=== PATIENT | male | born 1960 | race Caucasian/White ===

== ENCOUNTER 2017-11-21 13:32 | Emergency (ER) | payer MEDICAID ==
[2017-11-21 16:20] LABS: ADD MAN DIFF? NO
[2017-11-21 16:24] LABS: AADO2 Arterial 31.5 mmHg (7.0-24.0); ADD UMIC YES; Allen Test ACCEPTAB; Arterial Base Excess -3.1 mmol/L (-3.0-3); Arterial HCO3 22.1 mmol/L (22.0-26.0); Arterial MetHb 0.2 % (0.0-1.5); Arterial Total Hemglobin 17.2 g/dl (12.0-18.0); Arterial pCO2 40.4 mmhg (35-45); BASOPHIL # 0.1 10^3/ul (0.0-0.1); BASOPHILS % 0.6 % (0.0-2.0); EOSINOPHILS # 0.1 10^3/ul (0.0-0.5); EOSINOPHILS % 0.6 % (0.0-7.0); HEMATOCRIT 47.3 % (42.0-52.0); LYMPHOCYTES # 2.1 10^3/ul (0.8-2.9); LYMPHOCYTES % 25.2 % (15.0-51.0); MEAN CORPUSCULAR HEMOGLOBIN 29.5 pg (29.0-33.0); MEAN CORPUSCULAR HGB CONC 33.8 g/dl (32.0-37.0); MEAN CORPUSCULAR VOLUME 87.3 fl (82.0-101.0); MEAN PLATELET VOLUME 12.1 fl (7.4-10.4); MODE ROOM AIR; MONOCYTE # 0.6 10^3/ul (0.3-0.9); MONOCYTES % 6.9 % (0.0-11.0); NEUTROPHIL # 5.5 10^3/ul (1.6-7.5); NEUTROPHILS % 66.5 % (39.0-77.0); PLATELET COUNT 283 10^3/UL (140-415); RED BLOOD COUNT 5.42 10^6/ul (4.70-6.10); RED CELL DISTRIBUTION WIDTH 12.8 % (11.5-14.5); Site Right Radial; UR ASCORBIC ACID NEGATIVE (NEGATIVE); UR BILIRUBIN (Dip) NEGATIVE (NEGATIVE); UR BLOOD (Dip) 1+ mg/dL (NEGATIVE); UR CLARITY CLEAR (CLEAR); UR COLOR STRAW (YELLOW); UR GLUCOSE (Dip) 3+ mg/dL (NEGATIVE); UR KETONES (Dip) NEGATIVE (NEGATIVE); UR LEUKOCYTE ESTERASE (Dip) NEGATIVE Leu/ul (NEGATIVE); UR NITRITE (Dip) NEGATIVE (NEGATIVE); UR RBC 0 /HPF (0-5); UR SPECIFIC GRAVITY (Dip) 1.022 (1.003-1.030); UR TOTAL PROTEIN (Dip) 1+ mg/dl (NEGATIVE); UR UROBILINOGEN (Dip) NEGATIVE (NEGATIVE); UR WBC 1 /HPF (0-5)
[2017-11-21 16:24] LABS: WHITE BLOOD COUNT 8.2 10^3/ul (4.8-10.8)
[2017-11-21 16:38] LABS: INR 0.96; PROTIME 12.9 Sec (11.9-14.9)
[2017-11-21 16:39] LABS: PARTIAL THROMBOPLASTIN TIME 29.5 Sec (25.0-35.0)
[2017-11-21 16:56] LABS: ALANINE AMINOTRANSFERASE 92 IU/L (13-69); ALBUMIN 3.9 g/dl (3.3-4.9); ALBUMIN/GLOBULIN RATIO 1.11; ALKALINE PHOSPHATASE 221 IU/L (42-121); ANION GAP 17 (8-16); ASPARTATE AMINO TRANSFERASE 120 IU/L (15-46); BILIRUBIN,INDIRECT 0.1 mg/dl (0-1.1); BILIRUBIN,TOTAL 0.1 mg/dl (0.2-1.3); BLOOD UREA NITROGEN 27 mg/dl (7-20); CALCIUM 9.4 mg/dl (8.4-10.2); CARBON DIOXIDE 20 mmol/L (21-31); CHLORIDE 96 mmol/L (97-110); CREATININE 1.75 mg/dl (0.61-1.24); MAGNESIUM 2.1 mg/dl (1.7-2.5); PHOSPHORUS 3.7 mg/dl (2.5-4.9); POTASSIUM 5.2 mmol/L (3.5-5.1); SODIUM 128 mmol/L (135-144); TOTAL PROTEIN 7.4 g/dl (6.1-8.1)
[2017-11-21] MEDS: SOD CHLORIDE 0.9% IV (16:56)
[2017-11-21 17:08] LABS: TROPONIN-I < 0.012 ng/ml (0.00-0.12)
[2017-11-21 17:21] LABS: GLUCOSE 827 mg/dl (70-220)
[2017-11-21] MEDS: INSULIN LISPRO 100 UNIT/ML VIAL SC (19:19)
[2017-11-21] MEDS: hydrALAzine 20 MG INJ IV (20:33)
[2017-11-21] MEDS: NIFEdipine (XL) 30 MG TAB PO (20:34)
== END 2017-11-21 22:38 | disposition home or self-care (01) ==
LOC: E/R 13:32
DX: E11.65 Type 2 diabetes mellitus with hyperglycemia (principal); N17.9 Acute kidney failure, unspecified; R94.5 Abnormal results of liver function studies; R42 Dizziness and giddiness; Z79.84 Long term (current) use of oral hypoglycemic drugs
CPT/HCPCS: 36600; 70450; 71045; 80053; 81001; 82803; 82962; 83605; 83735; 84100; 84484; 85025; 85610; 85730; 87040; 87086; 93005; 96372; 96374; 99285-25

== ENCOUNTER 2017-11-29 16:10 | Emergency (ER) | payer MEDICAID ==
[2017-11-29] MEDS: NICARDipine HCL 30 MG CAPSULE PO (17:47)
[2017-11-29 18:34] LABS: ADD MAN DIFF? NO
[2017-11-29 18:36] LABS: BASOPHIL # 0.1 10^3/ul (0.0-0.1); BASOPHILS % 0.8 % (0.0-2.0); EOSINOPHILS % 0.1 % (0.0-7.0); HEMATOCRIT 45.8 % (42.0-52.0); HEMOGLOBIN 16.1 g/dl (14.0-18.0); LYMPHOCYTES # 2.1 10^3/ul (0.8-2.9); LYMPHOCYTES % 27.9 % (15.0-51.0); MEAN CORPUSCULAR HEMOGLOBIN 30.4 pg (29.0-33.0); MEAN CORPUSCULAR HGB CONC 35.2 g/dl (32.0-37.0); MEAN CORPUSCULAR VOLUME 86.6 fl (82.0-101.0); MEAN PLATELET VOLUME 12.1 fl (7.4-10.4); MONOCYTE # 0.7 10^3/ul (0.3-0.9); MONOCYTES % 8.8 % (0.0-11.0); NEUTROPHIL # 4.7 10^3/ul (1.6-7.5); NEUTROPHILS % 62.1 % (39.0-77.0); PLATELET COUNT 276 10^3/UL (140-415); RED BLOOD COUNT 5.29 10^6/ul (4.70-6.10)
[2017-11-29 18:36] LABS: WHITE BLOOD COUNT 7.5 10^3/ul (4.8-10.8)
[2017-11-29 18:55] LABS: ANION GAP 19 (8-16); BLOOD UREA NITROGEN 33 mg/dl (7-20); CALCIUM 9.4 mg/dl (8.4-10.2); CARBON DIOXIDE 22 mmol/L (21-31); CHLORIDE 93 mmol/L (97-110); CREATININE 1.67 mg/dl (0.61-1.24); POTASSIUM 4.8 mmol/L (3.5-5.1); SODIUM 129 mmol/L (135-144)
[2017-11-29 19:06] LABS: TROPONIN-I 0.018 ng/ml (0.00-0.12)
[2017-11-29 19:08] LABS: GLUCOSE 752 mg/dl (70-220)
[2017-11-29] MEDS: INSULIN LISPRO 100 UNIT/ML VIAL SC (19:40)
[2017-11-29] MEDS: SOD CHLORIDE 0.9% 1,000 ML IV (19:40)
== END 2017-11-29 20:58 | disposition home or self-care (01) ==
LOC: E/R 16:10
DX: I10 Essential (primary) hypertension (principal); I16.0 Hypertensive urgency; E11.65 Type 2 diabetes mellitus with hyperglycemia; Z87.891 Personal history of nicotine dependence; Z79.84 Long term (current) use of oral hypoglycemic drugs
CPT/HCPCS: 36415; 80048; 82962; 84484; 85025; 93005; 96372; 99284-25

== ENCOUNTER 2017-12-04 12:39 | Emergency (ER) | payer MEDICAID ==
[2017-12-04] MEDS: SOD CHLORIDE 0.9% 2,110 ML IV (14:18)
[2017-12-04 14:21] LABS: AADO2 Arterial 39.3 mmHg (7.0-24.0); Allen Test ACCEPTAB; Arterial Base Excess -9.8 mmol/L (-3.0-3); Arterial Blood Gas Oxygen Sat 94.6 mmHG (95.0-98.0); Arterial COHb 0.7 % (0.0-3.0); Arterial Fraction of Oxyhgb 93.7 % (93.0-99.0); Arterial HCO3 14.5 mmol/L (22.0-26.0); Arterial MetHb 0.3 % (0.0-1.5); Arterial Total Hemglobin 17.6 g/dl (12.0-18.0); Arterial pCO2 28.8 mmhg (35-45); MODE ROOM AIR; Site Left Radial
[2017-12-04 14:23] LABS: ADD MAN DIFF? NO
[2017-12-04 14:25] LABS: BASOPHILS % 0.4 % (0.0-2.0); HEMATOCRIT 53.1 % (42.0-52.0); HEMOGLOBIN 18.2 g/dl (14.0-18.0); LYMPHOCYTES # 1.9 10^3/ul (0.8-2.9); LYMPHOCYTES % 21.1 % (15.0-51.0); MEAN CORPUSCULAR HEMOGLOBIN 29.4 pg (29.0-33.0); MEAN CORPUSCULAR HGB CONC 34.3 g/dl (32.0-37.0); MEAN CORPUSCULAR VOLUME 85.8 fl (82.0-101.0); MEAN PLATELET VOLUME 11.6 fl (7.4-10.4); MONOCYTE # 0.5 10^3/ul (0.3-0.9); MONOCYTES % 5.2 % (0.0-11.0); NEUTROPHIL # 6.6 10^3/ul (1.6-7.5); PLATELET COUNT 319 10^3/UL (140-415); RED BLOOD COUNT 6.19 10^6/ul (4.70-6.10)
[2017-12-04 14:30] LABS: ADD UMIC YES; UR ASCORBIC ACID NEGATIVE (NEGATIVE); UR BACTERIA FEW /HPF (NONE SEEN); UR BILIRUBIN (Dip) NEGATIVE (NEGATIVE); UR BLOOD (Dip) 1+ mg/dL (NEGATIVE); UR CLARITY CLEAR (CLEAR); UR COLOR STRAW (YELLOW); UR GLUCOSE (Dip) 3+ mg/dL (NEGATIVE); UR KETONES (Dip) 1+ mg/dL (NEGATIVE); UR LEUKOCYTE ESTERASE (Dip) NEGATIVE Leu/ul (NEGATIVE); UR NITRITE (Dip) NEGATIVE (NEGATIVE); UR RBC 1 /HPF (0-5); UR SPECIFIC GRAVITY (Dip) 1.021 (1.003-1.030); UR TOTAL PROTEIN (Dip) 2+ mg/dl (NEGATIVE); UR UROBILINOGEN (Dip) NEGATIVE (NEGATIVE); UR WBC 1 /HPF (0-5)
[2017-12-04 14:39] LABS: INR 0.96; PROTIME 12.9 Sec (11.9-14.9)
[2017-12-04 14:40] LABS: PARTIAL THROMBOPLASTIN TIME 28.1 Sec (25.0-35.0)
[2017-12-04 14:51] LABS: ALANINE AMINOTRANSFERASE 104 IU/L (13-69); ALBUMIN 4.5 g/dl (3.3-4.9); ALBUMIN/GLOBULIN RATIO 1.25; ALKALINE PHOSPHATASE 191 IU/L (42-121); ANION GAP 25 (8-16); ASPARTATE AMINO TRANSFERASE 76 IU/L (15-46); BILIRUBIN,INDIRECT 0.1 mg/dl (0-1.1); BILIRUBIN,TOTAL 0.1 mg/dl (0.2-1.3); BLOOD UREA NITROGEN 30 mg/dl (7-20); CALCIUM 9.7 mg/dl (8.4-10.2); CARBON DIOXIDE 17 mmol/L (21-31); CHLORIDE 100 mmol/L (97-110); CREATININE 1.82 mg/dl (0.61-1.24); MAGNESIUM 2.3 mg/dl (1.7-2.5); PHOSPHORUS 4.4 mg/dl (2.5-4.9); SODIUM 137 mmol/L (135-144); TOTAL PROTEIN 8.1 g/dl (6.1-8.1)
[2017-12-04 15:33] LABS: GLUCOSE 614 mg/dl (70-220)
[2017-12-04 15:34] LABS: LACTIC ACID 2.1 mmol/L (0.5-2.0)
[2017-12-04 16:34] LABS: TROPONIN-I 0.017 ng/ml (0.00-0.12)
[2017-12-04] MEDS: INSULIN LISPRO 100 UNIT/ML VIAL SC (16:38)
[2017-12-04 17:44] LABS: LACTIC ACID 1.3 mmol/L (0.5-2.0)
[2017-12-04] MEDS: LABETALOL HCL 20MG INJ IV (17:56)
[2017-12-04] MEDS: ONDANSETRON (ODT) 4 MG TAB ODT (20:28)
== END 2017-12-04 20:29 | disposition home or self-care (01) ==
LOC: E/R 12:39
DX: E11.65 Type 2 diabetes mellitus with hyperglycemia (principal); F17.210 Nicotine dependence, cigarettes, uncomplicated; N18.9 Chronic kidney disease, unspecified; I12.9 Hypertensive chronic kidney disease with stage 1 through stage 4 chronic kidney disease, or unspecified chronic kidney disease; Z79.84 Long term (current) use of oral hypoglycemic drugs
CPT/HCPCS: 36415; 36600; 71045; 80053; 81001; 82803; 82962; 83605; 83735; 84100; 84484; 85025; 85610; 85730; 87040; 87086; 93005; 96372; 96374; 99285-25

== ENCOUNTER 2019-06-27 08:02 | Inpatient (IN) | payer OTHER, MEDICAID ==
[2019-06-27 08:48] LABS: ADD MAN DIFF? NO
[2019-06-27 08:50] LABS: BASOPHILS % 0.2 % (0.0-2.0); EOSINOPHILS % 0.1 % (0.0-7.0); HEMATOCRIT 48.2 % (42.0-52.0); HEMOGLOBIN 16.3 g/dl (14.0-18.0); LYMPHOCYTES # 2.3 10^3/ul (0.8-2.9); LYMPHOCYTES % 17.5 % (15.0-51.0); MEAN CORPUSCULAR HEMOGLOBIN 30.1 pg (29.0-33.0); MEAN CORPUSCULAR HGB CONC 33.8 g/dl (32.0-37.0); MEAN CORPUSCULAR VOLUME 89.1 fl (82.0-101.0); MONOCYTE # 1.1 10^3/ul (0.3-0.9); MONOCYTES % 8.1 % (0.0-11.0); NEUTROPHIL # 9.5 10^3/ul (1.6-7.5); NEUTROPHILS % 73.7 % (39.0-77.0); PLATELET COUNT 328 10^3/UL (140-415); RED BLOOD COUNT 5.41 10^6/ul (4.70-6.10); RED CELL DISTRIBUTION WIDTH 13.8 % (11.5-14.5)
[2019-06-27 08:50] LABS: WHITE BLOOD COUNT 12.9 10^3/ul (4.8-10.8)
[2019-06-27 09:04] LABS: POTASSIUM 3.6 mmol/L (3.5-5.1)
[2019-06-27 09:05] LABS: ANION GAP 9 (5-13); BLOOD UREA NITROGEN 22 mg/dl (7-20); CALCIUM 9.1 mg/dl (8.4-10.2); CARBON DIOXIDE 23 mmol/L (21-31); CHLORIDE 107 mmol/L (97-110); CREATININE 1.96 mg/dl (0.61-1.24); Estimated GFR 35 mL/min (>60); GLUCOSE 137 mg/dl (70-220); SODIUM 139 mmol/L (135-144)
[2019-06-27 09:52] LABS: TROPONIN-I 0.015 ng/ml (0.000-0.120)
[2019-06-27 09:52] LABS: B-TYPE NATRIURETIC PEPTIDE 1460 PG/ML (0-125)
[2019-06-27] MEDS ORDERED: FAMOTIDINE 20 MG INJ IV (10:30)
[2019-06-27] MEDS ORDERED: HYDROCODONE/APAP (5/325) TAB PO (10:30)
[2019-06-27] MEDS ORDERED: NACL 0.9% 3 ML SYG IV (10:30)
[2019-06-27] MEDS ORDERED: ACETAMINOPHEN 325 MG TAB PO ×2 (10:30)
[2019-06-27] MEDS ORDERED: ONDANSETRON 4 MG INJ IV (10:30)
[2019-06-27] MEDS: ONDANSETRON 4 MG INJ IV (11:19)
[2019-06-27] MEDS: morphine 2 MG INJ IV (11:20)
[2019-06-27] MEDS: FAMOTIDINE 20 MG INJ IV (11:34)
[2019-06-27] MEDS: LABETALOL HCL 20MG INJ IV (13:05)
[2019-06-27] MEDS: DEXTROSE 5%-0.45% NACL 1,000 ML IV (13:53)
[2019-06-27 14:19] LABS: CREATINE KINASE 160 IU/L (23-200)
[2019-06-27] MEDS ORDERED: hydrALAzine 20 MG INJ IV (14:30)
[2019-06-27] MEDS: PIPER-TAZO 3.375 GM IV (PMX) 100 ML IVPB (14:32)
[2019-06-27 14:33] LABS: CK INDEX 1.6; TROPONIN-I < 0.012 ng/ml (0.000-0.120)
[2019-06-27 14:34] LABS: CK-MB 2.48 ng/ml (0.0-2.4)
[2019-06-27] MEDS ORDERED: INSULIN ASPART [NOVOLOG] 3 ML PEN SC (17:55)
[2019-06-27] MEDS ORDERED: INSULIN GLARGINE [LANTus] (100 UNITS/ML) SYG SC (20:00)
[2019-06-28] MEDS ORDERED: ACCU-CHEK XX (02:00)
== END 2019-06-27 17:58 | disposition left against medical advice (07) | DRG 392 ==
LOC: E/R 08:02 → TEL 10:07
DX: K57.32 Diverticulitis of large intestine without perforation or abscess without bleeding (principal); N17.9 Acute kidney failure, unspecified; E11.22 Type 2 diabetes mellitus with diabetic chronic kidney disease; F17.210 Nicotine dependence, cigarettes, uncomplicated; I12.9 Hypertensive chronic kidney disease with stage 1 through stage 4 chronic kidney disease, or unspecified chronic kidney disease; N18.9 Chronic kidney disease, unspecified; N20.0 Calculus of kidney; K76.0 Fatty (change of) liver, not elsewhere classified; Z79.4 Long term (current) use of insulin; Z53.21 Procedure and treatment not carried out due to patient leaving prior to being seen by health care provider
CPT/HCPCS: 36415; 71045; 74176; 80048; 82550; 82553; 82962; 83880; 84484; 85025; 93005; 93306; 99285-25; G0378